=== PATIENT | male | born 1955 | race Caucasian/White ===

== ENCOUNTER 2022-04-29 10:15 | Inpatient (IN) | payer OTHER, MEDICAID ==
[~2022-04-29] VITALS: Ht 167.6 cm; Wt 61.2 kg
[2022-04-29] MEDS ORDERED: CLONIDINE 0.2MG TABLET PO ONE (11:00)
[2022-04-29] MEDS ORDERED: ACETAMINOPHEN 325MG TABLET PO ONE (11:00)
[2022-04-29 11:43] LABS: BASOPHILS % 1.2 % (0.0-2.0); EOSINOPHILS % 6.9 % (0.0-5.0); HEMATOCRIT. 36.2 % (42.0-52.0); HEMOGLOBIN. 11.9 g/dL (14.0-18.0); LYMPHOCYTES % 15.9 % (20.0-50.0); MEAN CORPUSCULAR HEMOGLOBIN 32.5 pg (28.0-32.0); MEAN CORPUSCULAR VOLUME 98.7 fL (80.0-94.0); MEAN PLATELET VOLUME 8.1 fl (7.4-10.4); MONOCYTES % 7.2 % (2.0-8.0); NEUTROPHILS % 68.8 % (40.0-76.0); PLATELET 276 x1000/uL (130-400); RED BLOOD CELL COUNT 3.66 mill/uL (4.7-6.1); RED CELL DISTRIBUTION WIDTH 14.9 % (11.6-14.6)
[2022-04-29] MEDS ORDERED: ASPIRIN 81MG TABLET PO ONE (12:00)
[2022-04-29 12:35] LABS: CHLORIDE 98 mEq/L (98-107)
[2022-04-29] MEDS ORDERED: CLONIDINE 0.1MG TABLET PO ONE (14:00)
[2022-04-29] MEDS: CLONIDINE 0.1MG TABLET PO NR ×2 (15:23→18:47)
[2022-04-29 19:15] VITALS: BP 201/78
[2022-04-29 20:00] VITALS: BP 199/88
[2022-04-29] MEDS ORDERED: DOCUSATE SODIUM 100MG CAPSULE PO PRN (20:30)
[2022-04-29] MEDS ORDERED: ONDANSETRON HCL 4MG/2ML INJ IV PRN (20:30)
[2022-04-29] MEDS ORDERED: CLONIDINE 0.1MG TABLET PO PRN (20:30)
[2022-04-29] MEDS ORDERED: MAGNESIUM/ALUMINUM HYDROXIDE/SIMETHICONE 30ML UDC PO PRN (20:30)
[2022-04-29] MEDS ORDERED: GUAIFENESIN 200MG/10ML SUGAR FREE UDC PO PRN (20:30)
[2022-04-29] MEDS ORDERED: ACETAMINOPHEN 325MG TABLET PO PRN (20:30)
[2022-04-29] MEDS ORDERED: IPRATROPIUM/ALBUTEROL 0.5-3(2.5)MG/3ML NEB HHN PRN (20:30)
[2022-04-29] MEDS ORDERED: NA PHOS,M-B/NA PHOS,DI-BA ENEMA 118ML PR PRN (20:30)
[2022-04-29] MEDS ORDERED: TAMS-11 (20:44)
[2022-04-29] MEDS ORDERED: LOSA50TA41 PO (20:44)
[2022-04-29] MEDS ORDERED: AMLO5TAB88 PO (20:44)
[2022-04-29] MEDS ORDERED: PANT20TA17 PO (20:44)
[2022-04-29] MEDS ORDERED: GABA-532 PO (20:44)
[2022-04-29] MEDS ORDERED: CLON0.1T PO (20:44)
[2022-04-29] MEDS ORDERED: IPRA3AMP9 NEB (20:44)
[2022-04-29] MEDS ORDERED: FERR325T23 PO (20:44)
[2022-04-29] MEDS ORDERED: DOCU-150 PO (20:44)
[2022-04-29] MEDS ORDERED: ASPI-1406 PO (20:44)
[2022-04-29] MEDS ORDERED: VALS160T28 PO (20:44)
[2022-04-29] MEDS ORDERED: HYDR-459 PO (20:44)
[2022-04-29] MEDS ORDERED: DIPH-1042 PO (20:44)
[2022-04-29] MEDS ORDERED: DUTA0.5C37 PO (20:44)
[2022-04-29] MEDS: PANTOPRAZOLE 40MG DR TABLET PO SCH (21:58)
[2022-04-29] MEDS: DUTASTERIDE 0.5MG CAPSULE PO SCH (21:58)
[2022-04-29] MEDS: TAMSULOSIN HCL 0.4MG SR CAPSULE PO SCH (21:59)
[2022-04-29] MEDS: AMLODIPINE 5MG TABLET PO SCH (21:59)
[2022-04-29] MEDS: CLONIDINE 0.1MG TABLET PO SCH (21:59)
[2022-04-29] MEDS ORDERED: DEXTROSE 50% WATER 50ML SYRINGE IV PRN (22:15)
[2022-04-30] VITALS (11 sets, daily range): BP systolic 150–189; BP diastolic 71–89
[2022-04-30] MEDS: BLOOD SUGAR DIAGNOSTIC STRIP TEST SCH ×4 (06:23→20:38)
[2022-04-30 06:37] LABS: BASOPHILS % 1.4 % (0.0-2.0); EOSINOPHILS % 10.2 % (0.0-5.0); HEMATOCRIT. 37.2 % (42.0-52.0); HEMOGLOBIN. 12.5 g/dL (14.0-18.0); LYMPHOCYTES % 19.8 % (20.0-50.0); MEAN CORPUSCULAR HEMOGLOBIN 32.8 pg (28.0-32.0); MEAN CORPUSCULAR VOLUME 97.8 fL (80.0-94.0); MEAN PLATELET VOLUME 7.9 fl (7.4-10.4); MONOCYTES % 7.9 % (2.0-8.0); NEUTROPHILS % 60.7 % (40.0-76.0); PLATELET 258 x1000/uL (130-400); RED BLOOD CELL COUNT 3.81 mill/uL (4.7-6.1); RED CELL DISTRIBUTION WIDTH 14.8 % (11.6-14.6)
[2022-04-30 06:55] LABS: PHOSPHORUS 7.5 mg/dL (2.5-4.9)
[2022-04-30 07:25] LABS: FOLIC ACID (FOLATE) SERUM 7.7 ng/mL (>5.38)
[2022-04-30] MEDS: INSULIN LISPRO 100 UNITS/ML SUBCUT SCH ×4 (09:42→20:37)
[2022-04-30] MEDS: PANTOPRAZOLE 40MG DR TABLET PO SCH (09:53)
[2022-04-30] MEDS: AMLODIPINE 5MG TABLET PO SCH ×2 (09:53→20:38)
[2022-04-30] MEDS: TAMSULOSIN HCL 0.4MG SR CAPSULE PO SCH (09:53)
[2022-04-30] MEDS: ENOXAPARIN 30MG/0.3ML SYR SUBCUT SCH (09:54)
[2022-04-30] MEDS: CLONIDINE 0.1MG TABLET PO SCH ×2 (09:54→20:37)
[2022-04-30] MEDS: DUTASTERIDE 0.5MG CAPSULE PO SCH (14:12)
[2022-04-30] MEDS: ACETAMINOPHEN 325MG TABLET PO PRN (21:19)
[2022-05-01] VITALS (10 sets, daily range): BP systolic 134–182; BP diastolic 59–87
[2022-05-01] MEDS: BENAZEPRIL 10MG TABLET PO SCH ×2 (00:30→08:17)
[2022-05-01 01:47] LABS: HEPATITIS B SURFACE ANTIGEN NEGATIVE
[2022-05-01] MEDS: INSULIN LISPRO 100 UNITS/ML SUBCUT SCH ×4 (05:52→21:00)
[2022-05-01] MEDS: BLOOD SUGAR DIAGNOSTIC STRIP TEST SCH ×4 (05:52→21:26)
[2022-05-01] MEDS: DUTASTERIDE 0.5MG CAPSULE PO SCH (08:15)
[2022-05-01] MEDS: CLONIDINE 0.1MG TABLET PO SCH (08:16)
[2022-05-01] MEDS: AMLODIPINE 5MG TABLET PO SCH ×2 (08:17→21:26)
[2022-05-01] MEDS: FAMOTIDINE 20MG TABLET PO SCH (08:17)
[2022-05-01] MEDS: TAMSULOSIN HCL 0.4MG SR CAPSULE PO SCH (08:17)
[2022-05-01] MEDS: ENOXAPARIN 30MG/0.3ML SYR SUBCUT SCH (08:20)
[2022-05-01] MEDS ORDERED: AMLODIPINE 5MG TABLET PO NR (10:00)
[2022-05-01] MEDS: CLONIDINE 0.2MG TABLET PO SCH ×2 (14:10→21:26)
[2022-05-01 16:00] LABS: BASOPHILS % 1.4 % (0.0-2.0); HEMATOCRIT. 36.8 % (42.0-52.0); HEMOGLOBIN. 11.9 g/dL (14.0-18.0); LYMPHOCYTES % 21.2 % (20.0-50.0); MEAN CORPUSCULAR HEMOGLOBIN 32.2 pg (28.0-32.0); MEAN CORPUSCULAR VOLUME 99.1 fL (80.0-94.0); MEAN PLATELET VOLUME 8.2 fl (7.4-10.4); MONOCYTES % 8.6 % (2.0-8.0); NEUTROPHILS % 59.8 % (40.0-76.0); PLATELET 253 x1000/uL (130-400); RED BLOOD CELL COUNT 3.71 mill/uL (4.7-6.1); RED CELL DISTRIBUTION WIDTH 15.1 % (11.6-14.6)
[2022-05-01 16:20] LABS: CHLORIDE 97 mEq/L (98-107)
[2022-05-01] MEDS ORDERED: ZOLP5TAB8 PO (18:55)
[2022-05-01] MEDS ORDERED: PHEN-910 PO (19:10)
[2022-05-01] MEDS ORDERED: KETO5DRO80 EACHEYE (19:15)
[2022-05-01] MEDS: CARVEDILOL 6.25 MG TABLET PO SCH (21:26)
[2022-05-02] VITALS (10 sets, daily range): BP systolic 116–180; BP diastolic 65–78
[2022-05-02] MEDS: INSULIN LISPRO 100 UNITS/ML SUBCUT SCH ×4 (05:39→22:02)
[2022-05-02] MEDS: BLOOD SUGAR DIAGNOSTIC STRIP TEST SCH ×4 (05:39→22:01)
[2022-05-02] MEDS: CLONIDINE 0.2MG TABLET PO SCH (05:39)
[2022-05-02 05:43] LABS: BASOPHILS % 1.1 % (0.0-2.0); EOSINOPHILS % 10.6 % (0.0-5.0); HEMATOCRIT. 35.6 % (42.0-52.0); HEMOGLOBIN. 11.7 g/dL (14.0-18.0); LYMPHOCYTES % 24.9 % (20.0-50.0); MEAN CORPUSCULAR HEMOGLOBIN 32.4 pg (28.0-32.0); MEAN CORPUSCULAR VOLUME 98.8 fL (80.0-94.0); MEAN PLATELET VOLUME 8.4 fl (7.4-10.4); MONOCYTES % 9.6 % (2.0-8.0); NEUTROPHILS % 53.8 % (40.0-76.0); PLATELET 239 x1000/uL (130-400); RED CELL DISTRIBUTION WIDTH 14.8 % (11.6-14.6)
[2022-05-02] MEDS: FAMOTIDINE 20MG TABLET PO SCH (08:52)
[2022-05-02] MEDS: TAMSULOSIN HCL 0.4MG SR CAPSULE PO SCH (08:52)
[2022-05-02] MEDS: DUTASTERIDE 0.5MG CAPSULE PO SCH (08:52)
[2022-05-02] MEDS: BENAZEPRIL 10MG TABLET PO SCH (08:52)
[2022-05-02] MEDS: AMLODIPINE 5MG TABLET PO SCH ×2 (08:52→22:01)
[2022-05-02] MEDS: ENOXAPARIN 30MG/0.3ML SYR SUBCUT SCH (08:53)
[2022-05-02] MEDS: CARVEDILOL 6.25 MG TABLET PO SCH (08:54)
[2022-05-02 09:15] LABS: CHLORIDE 99 mEq/L (98-107)
[2022-05-02] MEDS ORDERED: HYDRALAZINE HCL 100MG TABLET PO SCH (14:00)
[2022-05-02] MEDS: CLONIDINE 0.1MG TABLET PO SCH ×2 (14:57→22:00)
[2022-05-02] MEDS: NITROGLYCERIN OINT 1GM/INCH UDPKT TD SCH (18:00)
[2022-05-03] VITALS (7 sets, daily range): BP systolic 125–184; BP diastolic 65–85
[2022-05-03] MEDS: NITROGLYCERIN OINT 1GM/INCH UDPKT TD SCH ×3 (00:29→13:09)
[2022-05-03] MEDS: INSULIN LISPRO 100 UNITS/ML SUBCUT SCH ×3 (05:58→17:40)
[2022-05-03] MEDS: BLOOD SUGAR DIAGNOSTIC STRIP TEST SCH ×3 (05:58→17:40)
[2022-05-03] MEDS: CLONIDINE 0.1MG TABLET PO SCH ×3 (05:58→20:50)
[2022-05-03 07:04] LABS: BASOPHILS % 1.1 % (0.0-2.0); EOSINOPHILS % 10.4 % (0.0-5.0); HEMOGLOBIN. 11.6 g/dL (14.0-18.0); LYMPHOCYTES % 18.3 % (20.0-50.0); MEAN CORPUSCULAR HEMOGLOBIN 32.1 pg (28.0-32.0); MEAN CORPUSCULAR VOLUME 97.1 fL (80.0-94.0); MEAN PLATELET VOLUME 8.5 fl (7.4-10.4); MONOCYTES % 8.6 % (2.0-8.0); NEUTROPHILS % 61.6 % (40.0-76.0); PLATELET 259 x1000/uL (130-400); RED CELL DISTRIBUTION WIDTH 14.9 % (11.6-14.6)
[2022-05-03 07:32] LABS: CHLORIDE 91 mEq/L (98-107)
[2022-05-03] MEDS: AMLODIPINE 5MG TABLET PO SCH ×2 (09:08→20:50)
[2022-05-03] MEDS: ENOXAPARIN 30MG/0.3ML SYR SUBCUT SCH (09:09)
[2022-05-03] MEDS: TAMSULOSIN HCL 0.4MG SR CAPSULE PO SCH (09:09)
[2022-05-03] MEDS: DUTASTERIDE 0.5MG CAPSULE PO SCH (09:09)
[2022-05-03] MEDS: FAMOTIDINE 20MG TABLET PO SCH (09:09)
[2022-05-03] MEDS: BENAZEPRIL 10MG TABLET PO SCH (09:09)
[2022-05-03] MEDS ORDERED: ISOSORBIDE MONONITRATE 60MG TABLET SR 24HR PO SCH (14:30)
[2022-05-03] MEDS ORDERED: AMLO5TAB88 PO (16:01)
[2022-05-03] MEDS ORDERED: BENA10TA74 PO (16:01)
[2022-05-03] MEDS ORDERED: ISOS60TA76 PO (16:01)
[2022-05-03] MEDS ORDERED: CLON0.1T PO (16:01)
[2022-05-03] MEDS ORDERED: TAMS-11 PO (16:01)
[2022-05-03] MEDS ORDERED: BENAZEPRIL 10MG TABLET PO SCH (17:00)
[2022-05-03] MEDS: ACETAMINOPHEN 325MG TABLET PO PRN (17:39)
== END 2022-05-03 21:10 | disposition home or self-care (01) | DRG 304 ==
LOC: ER 10:32 → EDBD 10:32 → 7WST 16:14 → EDBEDREQ 16:18 → ENRESERV 17:25
PROVIDERS: ADMIT Internal Medicine; ATTEND Internal Medicine
PROC: 5A1D70Z Performance of Urinary Filtration, Intermittent, Less than 6 Hours Per Day (ICD-10-PCS; 2022-04-30)
PROC: 5A1D70Z Performance of Urinary Filtration, Intermittent, Less than 6 Hours Per Day (ICD-10-PCS; principal; 2022-05-02)
DX: I16.1 Hypertensive emergency (principal); N18.6 End stage renal disease; E46 Unspecified protein-calorie malnutrition; E87.1 Hypo-osmolality and hyponatremia; I13.2 Hypertensive heart and chronic kidney disease with heart failure and with stage 5 chronic kidney disease, or end stage renal disease; E78.00 Pure hypercholesterolemia, unspecified; E11.22 Type 2 diabetes mellitus with diabetic chronic kidney disease; Z20.822 Contact with and (suspected) exposure to COVID-19; D53.9 Nutritional anemia, unspecified; D63.1 Anemia in chronic kidney disease; E87.5 Hyperkalemia; D50.9 Iron deficiency anemia, unspecified; E11.65 Type 2 diabetes mellitus with hyperglycemia; I50.9 Heart failure, unspecified; J45.909 Unspecified asthma, uncomplicated; N40.0 Benign prostatic hyperplasia without lower urinary tract symptoms; Z99.2 Dependence on renal dialysis; Z79.899 Other long term (current) drug therapy; Z79.82 Long term (current) use of aspirin; Z68.21 Body mass index [BMI] 21.0-21.9, adult; Z88.8 Allergy status to other drugs, medicaments and biological substances
CPT/HCPCS: 36415; 71045; 80048; 80053; 82607; 82746; 82962; 83036; 83735; 83880; 84100; 84484; 85025; 86705; 86709; 86803; 87340; 87426; 87804; 90935; 93005; 93306; 93970; 97162; 97166; 97535; 99285; J1650; J1815; J2405

== ENCOUNTER 2023-02-25 20:30 | Inpatient (IN) | payer OTHER, MEDICAID ==
[~2023-02-25] VITALS: Ht 157.5 cm; Wt 62.6 kg
[~2023-02-25 20:30] MED LIST: AMLO5TAB88 PO; ASPI-1406 PO; BENA10TA74 PO; CLON0.1T PO; DIPH-1042 PO; DOCU-150 PO; DUTA0.5C37 PO; FERR325T23 PO; GABA-532 PO; HYDR-459 PO; IPRA3AMP9 NEB; ISOS60TA76 PO; KETO5DRO80 EACHEYE; LOSA50TA41 PO; PANT20TA17 PO; PHEN-910 PO; TAMS-11 PO; VALS160T28 PO; ZOLP5TAB8 PO
[2023-02-25] MEDS ORDERED: KETOROLAC 30MG/ML VIAL IV STA (21:34)
[2023-02-25] MEDS ORDERED: ONDANSETRON HCL 4MG/2ML INJ IV STA (21:34)
[2023-02-25 22:00] LABS: EOSINOPHILS % 8.2 % (0.0-5.0); HEMATOCRIT. 38.3 % (42.0-52.0); HEMOGLOBIN. 12.1 g/dL (14.0-18.0); LYMPHOCYTES % 10.8 % (20.0-50.0); MEAN CORPUSCULAR HEMOGLOBIN 30.4 pg (28.0-32.0); MEAN CORPUSCULAR HGB CONC 31.7 g/dL (31.0-37.0); MEAN PLATELET VOLUME 9.5 fl (7.4-10.4); MONOCYTES % 8.1 % (2.0-8.0); NEUTROPHILS % 71.9 % (40.0-76.0); PLATELET 205 x1000/uL (130-400); RED BLOOD CELL COUNT 3.99 mill/uL (4.7-6.1); RED CELL DISTRIBUTION WIDTH 14.7 % (11.6-14.6); WHITE BLOOD COUNT 8.6 x1000/uL (4.5-11.0)
[2023-02-25 22:07] LABS: PROTHROMBIN TIME 10.9 sec (9.6-11.0)
[2023-02-25 22:08] LABS: CHLORIDE 103 mEq/L (98-107); INDEX HEMOLYSI 1 (1-3); INDEX ICTERIC 1 (1-4); INDEX LIPEMIC 1 (1-3); POTASSIUM 5.1 mEq/L (3.5-5.1); SODIUM 135 mEq/L (136-145)
[2023-02-25 22:28] LABS: ALANINE AMINOTRANSFERASE 19 IU/L (13-61); ALBUMIN 3.4 g/dL (3.4-5.0); ASPARTATE AMINOTRANSFERASE 10 IU/L (15-37); BILIRUBIN TOTAL 0.4 mg/dL (0.1-1.0); CALCIUM 7.8 mg/dL (8.5-10.1); CARBON DIOXIDE 25 mEq/L (21-32); GLUCOSE 187 mg/dL (70-105); PROTEIN TOTAL 7.8 g/dL (6.0-8.3); TROPONIN I HIGH SENSITIVITY 13 ng/L (<78); UREA NITROGEN BLOOD 47 mg/dL (7-21)
[2023-02-25 22:30] LABS: NT PRO B-TYPE NATRIURETIC PEP 38170 pg/mL (5-125)
[2023-02-25 22:37] LABS: CREATININE 6.5 mg/dL (0.6-1.3)
[2023-02-26 00:15] LABS: TROPONIN I HIGH SENSITIVITY 13 ng/L (<78)
[2023-02-26 01:12] LABS: TROPONIN I HIGH SENSITIVITY 13 ng/L (<78)
[2023-02-26] MEDS: BLOOD SUGAR DIAGNOSTIC STRIP TEST SCH ×3 (12:30→21:00)
[2023-02-26] MEDS: INSULIN LISPRO 100 UNITS/ML SUBCUT SCH ×2 (12:30→17:29)
[2023-02-26 12:43] VITALS: BP 156/65; PULSE 75; RESP 18; TEMP 97.6
[2023-02-26] MEDS ORDERED: LACTULOSE 20G/30ML UDC PO NR (12:45)
[2023-02-26] MEDS ORDERED: DEXTROSE 50% WATER 50ML SYRINGE IV PRN (12:45)
[2023-02-26 12:47] VITALS: BP 156/65; PULSE 75; RESP 20; TEMP 97.6
[2023-02-26] MEDS: AMLODIPINE 10MG TABLET PO SCH (13:38)
[2023-02-26 16:00] VITALS: BP 151/72; PULSE 78; RESP 18; TEMP 97.9
[2023-02-26] MEDS: SEVELAMER CARBONATE 800 MG TABLET PO SCH (17:29)
[2023-02-26 20:00] VITALS: BP 118/61; PULSE 82; RESP 19; TEMP 96.2
[2023-02-26] MEDS ORDERED: GABAPENTIN 300MG CAPSULE PO SCH (21:00)
[2023-02-26 23:10] LABS: HEPATITIS B SURFACE ANTIGEN NEGATIVE
[2023-02-26 23:37] LABS: HEPATITIS C VIR.AB 0.14 INDEXVAL (0.00-0.80)
[2023-02-26 23:38] LABS: HEPATITIS B CORE AB IGM NEGATIVE
[2023-02-26 23:39] LABS: HEPATITIS A AB IGM NEGATIVE (NEGATIVE)
[2023-02-27] VITALS (8 sets, daily range): BP systolic 120–185; BP diastolic 60–85; PULSE 74–89; RESP 18–20; TEMP 97.2–98.2; O2SAT 97
[2023-02-27] MEDS: BLOOD SUGAR DIAGNOSTIC STRIP TEST SCH ×2 (07:40→12:16)
[2023-02-27] MEDS: INSULIN LISPRO 100 UNITS/ML SUBCUT SCH ×2 (08:10→12:15)
[2023-02-27] MEDS: SEVELAMER CARBONATE 800 MG TABLET PO SCH ×2 (08:10→13:10)
[2023-02-27 08:19] LABS: BASOPHILS % 1.2 % (0.0-2.0); EOSINOPHILS % 10.7 % (0.0-5.0); HEMATOCRIT. 36.2 % (42.0-52.0); HEMOGLOBIN. 11.8 g/dL (14.0-18.0); MEAN CORPUSCULAR HEMOGLOBIN 31.5 pg (28.0-32.0); MEAN CORPUSCULAR HGB CONC 32.7 g/dL (31.0-37.0); MEAN CORPUSCULAR VOLUME 96.3 fL (80.0-94.0); MEAN PLATELET VOLUME 9.5 fl (7.4-10.4); MONOCYTES % 10.4 % (2.0-8.0); NEUTROPHILS % 60.7 % (40.0-76.0); PLATELET 204 x1000/uL (130-400); RED BLOOD CELL COUNT 3.76 mill/uL (4.7-6.1); RED CELL DISTRIBUTION WIDTH 14.8 % (11.6-14.6); WHITE BLOOD COUNT 7.7 x1000/uL (4.5-11.0)
[2023-02-27 08:55] LABS: POTASSIUM 6.1 mEq/L (3.5-5.1)
[2023-02-27 08:57] LABS: CALCIUM 7.8 mg/dL (8.5-10.1)
[2023-02-27] MEDS ORDERED: FOLIC ACID/VITAMIN B COMP W-C TABLET PO SCH (09:00)
[2023-02-27] MEDS: AMLODIPINE 10MG TABLET PO SCH (09:00)
[2023-02-27] MEDS ORDERED: TRAMADOL 50MG TABLET PO PRN (11:45)
[2023-02-27] MEDS ORDERED: NALOXONE HCL 0.4MG/ML VIAL IV PRN (17:30)
== END 2023-02-27 17:49 | disposition home or self-care (01) | DRG 391 ==
LOC: ER 20:30 → MICUSO 02-26 01:49 → EDBEDREQ 02-26 01:51 → 7WST 02-26 13:24
PROVIDERS: ADMIT Internal Medicine; ATTEND Internal Medicine
PROC: 5A1D70Z Performance of Urinary Filtration, Intermittent, Less than 6 Hours Per Day (ICD-10-PCS; principal; 2023-02-27)
DX: K59.00 Constipation, unspecified (principal); N18.6 End stage renal disease; I12.0 Hypertensive chronic kidney disease with stage 5 chronic kidney disease or end stage renal disease; E87.70 Fluid overload, unspecified; E11.22 Type 2 diabetes mellitus with diabetic chronic kidney disease; E87.5 Hyperkalemia; K31.89 Other diseases of stomach and duodenum; D64.9 Anemia, unspecified; K80.20 Calculus of gallbladder without cholecystitis without obstruction; Z87.442 Personal history of urinary calculi; Z99.2 Dependence on renal dialysis; Z79.899 Other long term (current) drug therapy; Z79.4 Long term (current) use of insulin
CPT/HCPCS: 36415; 71045; 74176; 76700; 80048; 80053; 82962; 83880; 84484; 85025; 86705; 86709; 86803; 87340; 90935; 99285; J1815; J1885; J2405